=== PATIENT | male | born 1995 | race Caucasian/White ===

== ENCOUNTER 2022-10-31 07:40 | Observation (INO) | payer OTHER, BC, MEDICAID, SELFPAY ==
[2022-10-31] VITALS (12 sets, daily range): BP systolic 112–147; BP diastolic 59–91; PULSE 40–86; RESP 18–21; TEMP 36.5–37; O2SAT 96–99; BMI 30.9; BMI 30.6
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
[2022-10-31 08:00] LABS: Basophils % 0.5 % (0.1-2.0); Eosinophils # 0.1 K/mm3 (0.0-0.4); Eosinophils % 1.5 % (0.1-12.0); Hematocrit 45.7 % (42.0-52.0); Hemoglobin 14.7 g/dL (14.1-18.0); Lymphocytes # 2.2 K/mm3 (0.7-4.5); Lymphocytes % 41.3 % (10-50); Mean Corpuscular HGB Conc 32.2 g/dL (31.8-35.4); Mean Corpuscular Hemoglobin 29.7 pg (27.0-31.2); Mean Corpuscular Volume 92.3 fl (80-94); Mean Platelet Volume 7.6 fl (7.4-10.4); Monocytes # 0.4 K/mm3 (0.1-1.0); Monocytes % 7.1 % (1.7-9.3); Neutrophils # 2.6 K/mm3 (1.8-7.8); Neutrophils % 49.6 % (37.0-80.0); Platelet Count 228 K/mm3 (142-424); Red Blood Count 4.95 M/mm3 (4.60-6.20); White Blood Count 5.2 K/mm3 (4.8-10.8)
[2022-10-31 08:07] LABS: Chloride 105 mmol/L (98-107); Sodium 141 mmol/L (136-145)
[2022-10-31 08:10] LABS: Alanine Aminotransferase 40 U/L (12-78); Albumin Level 4.4 g/dl (3.5-5.0); Albumin/Globulin Ratio 1.7 (1.1-1.8); Alkaline Phosphatase 86 U/L (38-126); Aspartate Amino Transferase 47 U/L (17-59); Bilirubin,Total 0.6 mg/dl (0.2-1.3); Blood Urea Nitrogen 21 mg/dl (9-20); Carbon Dioxide 28 mmol/L (22.0-30.0); Creatinine Clearance Estimated 127 mL/min (50-200); Estimated Glomerular Filt Rate 72 ml/min (>60); GFR (African American) 87 ML/MIN (>60); Globulin 2.6 g/dL (1.3-3.2)
[2022-10-31 08:11] LABS: Calcium 9.3 mg/dl (8.4-10.2); Glucose 103 mg/dl (74-100)
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
[2022-10-31 08:23] LABS: Troponin I 0.06 ng/ml (0.00-0.034)
--- NOTE | 2022-10-31 08:39 | PC.NURSE ---
called and update on pt care
--- NOTE | 2022-10-31 09:01 | PC.NURSE ---
PT RETURNED FROM CT
--- NOTE | 2022-10-31 09:17 | ECG_ITS ---
APPROVED REPORT Exam: Resting ECG HR:68 bpm ECG Measurements Heart Rate 68 AXES FL 151 P 28 QRSd 100 QRS 59 QT 367 T 28 QTc 385 Conclusion SINUS RHYTHM NORMAL ECG UNCONFIRMED REPORT Electronically signed by : Kit Catalan MD 10/31/2022 20:16:19
--- NOTE | 2022-10-31 09:30 | PC.NURSE ---
DR MANZANARES AT BEDSIDE, C-COLLAR REMOVED BY
--- NOTE | 2022-10-31 10:12 | PC.NURSE ---
Rounded on patient; Family at BS. No needs at this time, call light within reach
--- NOTE | 2022-10-31 10:46 | PC.NURSE ---
DR MANZANARES SPEAKING WITH DR ZUÑIGA
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
--- NOTE | 2022-10-31 11:12 | PC.NURSE ---
DR MANZANARES AT BEDSIDE TO UPDATE PT AND FAMILY
[2022-10-31 11:31] LABS: Troponin I 0.04 ng/ml (0.00-0.034)
--- NOTE | 2022-10-31 11:40 | PC.NURSE ---
CARE MANAGEMENT NOTIFIED OF ADMISSION
--- NOTE | 2022-10-31 11:50 | PC.NURSE ---
report called to receiving RN
[2022-10-31 14:57] LABS: Troponin I 0.03 ng/ml (0.00-0.034)
[2022-10-31 17:49] LABS: Troponin I 0.03 ng/ml (0.00-0.034)
--- NOTE | 2022-10-31 23:06 | PC.NURSE ---
TYLENOL GIVEN AT THIS TIME FOR BACK PAIN OF A 4/10
--- NOTE | 2022-10-31 23:35 | PC.NURSE ---
pain is now a 04/10
[2022-11-01] VITALS: BP 129/52; PULSE 45; PULSE 50; RESP 18; TEMP 36.6; O2SAT 98
[2022-11-01 04:00] VITALS: BP 122/55; PULSE 40; PULSE 55; RESP 20; TEMP 36.4; O2SAT 97; BMI 29.5
[2022-11-01 06:07] LABS: Basophils % 0.2 % (0.1-2.0); Eosinophils # 0.1 K/mm3 (0.0-0.4); Eosinophils % 1.9 % (0.1-12.0); Hematocrit 42.7 % (42.0-52.0); Lymphocytes # 1.5 K/mm3 (0.7-4.5); Lymphocytes % 41.9 % (10-50); Mean Corpuscular HGB Conc 32.7 g/dL (31.8-35.4); Mean Corpuscular Hemoglobin 29.9 pg (27.0-31.2); Mean Corpuscular Volume 91.3 fl (80-94); Mean Platelet Volume 7.5 fl (7.4-10.4); Monocytes # 0.3 K/mm3 (0.1-1.0); Monocytes % 7.5 % (1.7-9.3); Neutrophils # 1.7 K/mm3 (1.8-7.8); Neutrophils % 48.6 % (37.0-80.0); Platelet Count 193 K/mm3 (142-424); Red Blood Count 4.67 M/mm3 (4.60-6.20); Red Cell Distribution Width 12.9 % (11.5-17.5); White Blood Count 3.5 K/mm3 (4.8-10.8)
[2022-11-01 06:11] LABS: Chloride 107 mmol/L (98-107); Sodium 140 mmol/L (136-145)
[2022-11-01 06:14] LABS: Blood Urea Nitrogen 17 mg/dl (9-20); Creatinine Clearance Estimated 146 mL/min (50-200); Estimated Glomerular Filt Rate 89 ml/min (>60); GFR (African American) 108 ML/MIN (>60)
[2022-11-01 06:15] LABS: Calcium 8.9 mg/dl (8.4-10.2); Carbon Dioxide 27 mmol/L (22.0-30.0); Glucose 101 mg/dl (74-100)
[2022-11-01 08:00] VITALS: BP 132/73; PULSE 50; PULSE 70; RESP 18; TEMP 36.6; O2SAT 100
--- NOTE | 2022-11-01 08:29 | PC.NURSE ---
TECH NOTE; NOTIFIED NURSE OF HEART RATE FOR 0800 VITAL SIGNS Eliot UGALDE, SRNA
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
--- NOTE | 2022-11-02 15:39 | CARE MANAGER ---
Spoke with patient regarding recent discharge. Patient stated that he is doing well, just really sore and head is still a little foggy . Patient advised to go to ER if he has a decline of any kind and to move scheduled f/u to sooner if he feels like he needs to be seen. No other concerns voiced at time of call.
== END 2022-11-01 10:09 | disposition home or self-care (01) ==
LOC: ER 10:04 → 2ND 11:45
PROVIDERS: Admitting Provider Internal Medicine; Emergency Provider Emergency Medicine; PCP Emergency Medicine; Visit Provider Internal Medicine
DX: S26.90XA Unspecified injury of heart, unspecified with or without hemopericardium, initial encounter (principal); M51.27 Other intervertebral disc displacement, lumbosacral region; V43.52XA Car driver injured in collision with other type car in traffic accident, initial encounter; W22.11XA Striking against or struck by driver side automobile airbag, initial encounter; Y92.413 State road as the place of occurrence of the external cause
CPT/HCPCS: 36415; 70450; 70496; 70498; 71045; 71275; 72125; 72128; 72131; 72170; 73030; 73060; 74174; 80048; 80053; 84484; 85025; 86850; 93005; 93306; 99285; G0378; J0131; J2405; Q9967

== ENCOUNTER 2022-11-08 07:57 | Outpatient (RCR) | payer OTHER, BC, MEDICAID, SELFPAY | END 2022-11-08 08:30 | disposition home or self-care (01) | LOC: PT 07:57 | PROVIDERS: PCP Emergency Medicine; Visit Provider Internal Medicine | DX: M51.27 Other intervertebral disc displacement, lumbosacral region (principal) ==